=== PATIENT | female | born 2005 | race Hispanic/Latino ===

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

== ENCOUNTER 2025-08-26 15:50 | Emergency (ER) | payer OTHER | END 2025-08-26 16:43 | disposition home or self-care (01) | LOC: ERS 15:50 | DX: J02.9 Acute pharyngitis, unspecified (principal); B97.89 Other viral agents as the cause of diseases classified elsewhere | CPT/HCPCS: 87081; 87430; 99282 ==